=== PATIENT | female | born 1985 | race Caucasian/White ===

== ENCOUNTER 2024-12-27 21:16 | Emergency (ER) | payer BC ==
--- NOTE | 2024-12-27 22:09 | RAD REPORT ---
EXAMINATION: ONE VIEW CHEST XR CLINICAL INDICATION: CHEST PAIN TECHNIQUE: Frontal chest projection is submitted. Examination is limited by patient positioning and t echnique. COMPARISON: No prior exam. FINDINGS: The lungs are well inflated and clear. The heart is upper limit of normal in size. No displaced fract ures identified. IMPRESSION: No acute intrathoracic abnormalities.
[2024-12-27 23:40] LABS: Absolute Basophils 0.1 K/uL (0-0.5); Absolute Eosinophils 0.6 K/uL (0-0.5); Absolute Lymphocytes (CBC) 2.6 K/uL (0.7-4.9); Absolute Monocytes 0.9 K/uL (0.1-1.3); Absolute Neutrophil 6.9 K/uL (1.8-8.0); Basophils % 0.8 % (0-1.3); Eosinophils % 5.1 % (0-4.4); Hematocrit 36.6 % (36.0-45.0); Hemoglobin 12.1 g/dL (12.0-15.0); Lymphocytes % 23.2 % (15.3-44.8); MCH 28.4 pg (27.0-35.0); MCHC 33.1 g/dL (32.0-36.0); MCV 85.7 fL (80-100); MPV 8.4 fL (7.6-11.3); Monocytes % 8.4 % (3.3-12.3); Neutrophils % 62.5 % (41.7-73.7); Nucleated Red Blood Cells % 0.1 % (0-0); Platelets 407 thou/uL (152-406); RBC Red Blood Cell Count 4.27 M/uL (3.86-4.86); Red Cell Distribution Width 13.8 % (12.1-15.2)
[2024-12-27 23:48] LABS: PT Prothrombin Time 11.6 SECONDS (9.4-12.5); Protime INR 1.11
[2024-12-28 00:16] LABS: ALT/SGPT 25 U/L (13-56); AST/SGOT 14 U/L (15-37); Albumin 3.5 g/dL (3.4-5.0); Albumin/Globulin Ratio 0.8 (1.1-1.8); Alkaline Phosphatase 72 U/L (45-117); Anion Gap 7.5 mEq/L (5.0-15.0); BUN Blood Urea Nitrogen 16 mg/dL (7-18); Bicarbonate 29 mEq/L (21-32); Bilirubin Total 0.2 mg/dL (0.2-1.0); Globulin 4.3 g/dL (2.3-3.5); Glomerular Filtration Rate 95 ml/min (=/>90); Glucose Level 95 mg/dL (74-106); Magnesium 2.3 mg/dL (1.6-2.4); NT PRO-BNP 19 pg/mL (<125); Potassium 3.5 mEq/L (3.5-5.1); Protein, Total 7.8 g/dL (6.4-8.2); Sodium Level 138 mEq/L (136-145)
[2024-12-28 00:26] LABS: Bilirubin Direct < 0.2 mg/dL (0-0.2); Troponin High Sensitivity < 3.0 pg/mL (<58.9)
[2024-12-28 00:27] LABS: Barbiturates NEGATIVE (NEGATIVE); Benzodiazepines NEGATIVE (NEGATIVE); Cocaine NEGATIVE (NEGATIVE); METHAMPHETAM NEGATIVE (NEGATIVE); Methadone NEGATIVE (NEGATIVE); Opiates NEGATIVE (NEGATIVE); Phencyclidine NEGATIVE (NEGATIVE); THC Cannibis NEGATIVE (NEGATIVE)
--- NOTE | 2024-12-28 00:37 | ER ---
Nurse's Notes [facility] Name: Aurora Argueta Age: 39 yrs Sex: Female : 1985 Arrival Date: 12/27/2024 Time: 21:16 Bed 18 Private MD: Diagnosis: Elevated blood-pressure reading, without diagnosis of hypertension;Elevated blood pressure, Acute Stress Reaction Presentation: 12/27 21:30 Chief complaint: Patient states: Tingling and tightness in left arm. Coronavirus ay screen: Client denies travel out of the [place] in the last 14 days. Ebola Screen: No symptoms or risks identified at this time. Initial Sepsis Screen: Does the patient meet any 2 criteria? No. Patient's initial sepsis screen is negative. Does the patient have a suspected source of infection? No. Patient's initial sepsis screen is negative. Risk Assessment: Do you want to hurt yourself or someone else? Patient reports no desire to harm self or others. Note Pt came in with a c/o left arm tightness and tingling. Denies CP, SOB, N/V. Alert and oriented, no distress noted. Onset of symptoms is unknown. 21:30 Method Of Arrival: Ambulatory ay 21:30 Acuity: VANESSA 3 ay Triage Assessment: 21:30 General: Appears in no apparent distress. comfortable, Behavior is calm, cooperative. ay Pain: Denies pain. Historical: - Allergies: 22:51 NKDA; ay - Immunization history:: Client reports having NOT received the Covid vaccine. Flu vaccine is not up to date. - Infectious Disease History:: Denies. - Family history:: not pertinent. - Social history:: Smoking status: Patient denies any tobacco usage or history of. Screenin:51 [facility] ED Fall Risk Assessment (Adult) History of falling in the last 3 months, ay including since admission No falls in past 3 months (0 pts) Confusion or Disorientation No (0 pts) Intoxicated or Sedated No (0 pts) Impaired Gait No (0 pts) Mobility Assist Device Used No (0 pt) Altered Elimination No (0 pt) Score/Fall Risk Level 0 - 2 = Low Risk Oriented to surroundings, Maintained a safe environment, Educated pt \\T\\ family on fall prevention, incl call for assistance when getting out of bed. Abuse screen: Denies threats or abuse. Nutritional screening: No deficits noted. Tuberculosis screening: No symptoms or risk factors identified. Assessment: 21:30 General: Appears in no apparent distress. comfortable, Behavior is calm, cooperative. ay General: Pt came in with a c/o left arm tightness and tingling that started "for sometime now", denies CP, SOB, N/V. Pt alert and oriented x4 . No distress noted. Pt on cardiac and vitals monitors. Pain: Denies pain. Denies CP, c/o left arm tightness and tingling. Pain: Pain began denies pain. Neuro: Level of Consciousness is awake, alert, obeys commands, Oriented to person, place, time, situation, Speech is normal. Cardiovascular: Denies chest pain, nausea, vomiting, Capillary refill < 3 seconds Patient's skin is warm and dry. Respiratory: Airway is patent Respiratory effort is even, unlabored. GI: No signs and/or symptoms were reported involving the gastrointestinal system. : No signs and/or symptoms were reported regarding the genitourinary system. EENT: No signs and/or symptoms were reported regarding the EENT system. Vital Signs: 21:30 BP 139 / 105; Pulse 105; Resp 20; Pulse Ox 97% ; ay 22:00 BP 132 / 91; Pulse 87; Resp 19; Pulse Ox 98% ; ay 22:30 BP 125 / 88; Pulse 76; Resp 17; Pulse Ox 99% ; ay 23:00 BP 131 / 80; Pulse 78; Resp 18; Pulse Ox 100% ; ay 12/28 00:00 BP 127 / 91; Pulse 76; Resp 16; Pulse Ox 97% ; ay [place] Coma Score: 12/27 21:34 Eye Response: spontaneous(4). Motor Response: obeys commands(6). Verbal Response: sp4 oriented(5). Total: 15. 22:51 Eye Response: spontaneous(4). Motor Response: obeys commands(6). Verbal Response: ay oriented(5). Total: 15. NIH Stroke Scale Scores: 21:34 NIHSS Score: 0 sp4 ED Course: 21:19 Patient arrived in ED. im 21:23 Aron King MD is Attending Physician. sp4 21:30 Arm band placed on right wrist. EKG completed in triage. Results shown to MD. EKG ay completed in triage. Results shown to MD. EKG completed in triage. Results shown to MD. EKG completed in triage. Results shown to MD. EKG completed in triage. Results shown to MD. EKG completed in triage. Results shown to MD. EKG done per protocol. Performed by ED Staff. 22:00 Inserted saline lock: 22 gauge in right upper arm, using aseptic technique. ay 22:03 XRAY Chest (1 view) In Process Unspecified. EDMS 22:40 Cary Moise, RN is Primary Nurse. ay 22:51 Patient has correct armband on for positive identification. Bed in low position. Call ay light in reach. Side rails up X2. property assessment monitor on. Pulse ox on. NIBP on. 22:51 Patient maintains SpO2 saturation greater than 95% on room air. ay 12/28 00:35 Samir Freeman DO is Referral Physician. sp4 01:11 Triage completed. ay : IV discontinued, intact, bleeding controlled, No redness/swelling at site. Pressure ay dressing applied. Administered Medications: No medications were administered Outcome: 00:37 Discharge ordered by spReno 01:23 Discharged to home ambulatory, ay :23 Condition: stable :23 Discharge instructions given to patient, Instructed on discharge instructions, follow up and referral plans. Demonstrated understanding of instructions, follow-up care, 01:25 Patient left the ED. ay NIH Stroke Scale - NIH Stroke Score Date: 12/27/2024 Time: 21:34 Total Score = 0 10. Dysarthria (speech clarity - read or repeat words) - 0(Normal) 11. Extinction and Inattention (visual/tactile/auditory/spatial/personal) - 0(No abnormality) 1a. Level of Consciousness (LOC) - 0(Alert) 1b. Level of Consciousness (LOC) (Month \\T\\ Age) - 0(Both) 1c. LOC Commands (Open \\T\\ Closes Eyes/Cnc Service Technician) - 0(Both) 2. Best Gaze (Lateral Gaze Paresis) - 0(Normal) 3. Visual Field Loss - 0(No visual loss) 4. Facial Palsy - 0(Normal) 5a. Left Arm: Motor (10-second hold) - 0(No drift) 5b. Right Arm: Motor (10-second hold) - 0(No drift) 6a. Left Leg: Motor (5-second hold - always test supine) - 0(No drift) 6b. Right Leg: Motor (5-second hold - always test supine) - 0(No drift) 7. Limb Ataxia (finger/nose \\T\\ heel/randle - test with eyes open) - 0(Absent) 8. Sensory Loss (pinprick arms/legs/face) - 0(Normal) 9. Best Language: Aphasia (description/naming/reading) - 0(No aphasia) Initials: sp4 Signatures: Dispatcher [employer] Aron Ann MD MD sp4 Fabiana Otero Awudu, RN RN ay
--- NOTE | 2024-12-28 00:37 | EDPHYS ---
Physician Documentation [facility] Name: Aurora Argueta Age: 39 yrs Sex: Female : 1985 Arrival Date: 12/27/2024 Time: 21:16 Bed 18 Private MD: ED Physician Aron King HPI: 12/27 21:23 This 39 yrs old Female presents to ER via Unassigned with complaints of High sp4 Blood Pressure, Chest Pain, Arm Problem - tightness left. 12/28 02:55 Patient presents with report of elevated blood pressure associated with left arm sp4 tingling and numbness. Patient reports increased levels of stress. She reports blood pressures 160/110 . Historical: - Allergies: 12/27 22:51 NKDA; ay - Immunization history:: Client reports having NOT received the Covid vaccine. Flu vaccine is not up to date. - Infectious Disease History:: Denies. - Family history:: not pertinent. - Social history:: Smoking status: Patient denies any tobacco usage or history of. ROS: 12/28 02:55 Constitutional: Negative for fever, chills, and weight loss, positive elevated blood sp4 pressure positive arm numbness and tingling on the left. All other systems are negative, Exam: 02:55 Constitutional: This is a well developed, well nourished patient who is awake, alert, sp4 and in no acute distress. Head/Face: Normocephalic, atraumatic. Eyes: Pupils equal round and reactive to light, extra-ocular motions intact. Lids and lashes normal. Conjunctiva and sclera are not injected. Cornea within normal limits. Periorbital areas with no swelling, redness, or edema. ENT: Nares patent. No nasal discharge, no septal abnormalities noted. Tympanic membranes are normal and external auditory canals are clear. Oropharynx with no redness, swelling, or masses, exudates, or evidence of obstruction, uvula midline. Mucous membranes moist. Neck: Trachea midline, no thyromegaly or masses palpated, and no cervical lymphadenopathy. Supple, full range of motion without nuchal rigidity, or vertebral point tenderness. Chest/axilla: Normal chest wall appearance and motion. Nontender with no deformity. No lesions are appreciated. Cardiovascular: Regular rate and rhythm with a normal S1 and S2. No gallops, murmurs, or rubs. Normal PMI, no JVD. No pulse deficits. Respiratory: Lungs have equal breath sounds bilaterally, clear to auscultation and percussion. No rales, rhonchi or wheezes noted. No increased work of breathing, no retractions or nasal flaring. Abdomen/GI: Soft, with normal bowel sounds. No distension or tympany. No guarding or rebound. No evidence of tenderness throughout. Back: No spinal tenderness. No costovertebral tenderness. Skin: Warm, dry with normal turgor. Normal color with no rashes, no lesions, and no evidence of cellulitis. MS/ Extremity: Pulses equal, no cyanosis. Neurovascular intact. Full, normal range of motion. Neuro: Awake and alert, GCS 15, oriented to person, place, time, and situation. Cranial nerves II-XII grossly intact. Motor strength 5/5 in all extremities. Sensory grossly intact. Psych: Awake, alert, with orientation to person, place and time. Behavior, mood, and affect are within normal limits 02:55 ECG was reviewed by the Attending Physician. EKG 2134 sinus tachycardia rate 105 otherwise normal. Vital Signs: 12/27 21:30 BP 139 / 105; Pulse 105; Resp 20; Pulse Ox 97% ; ay 22:00 BP 132 / 91; Pulse 87; Resp 19; Pulse Ox 98% ; ay 22:30 BP 125 / 88; Pulse 76; Resp 17; Pulse Ox 99% ; ay 23:00 BP 131 / 80; Pulse 78; Resp 18; Pulse Ox 100% ; ay 12/28 00:00 BP 127 / 91; Pulse 76; Resp 16; Pulse Ox 97% ; ay NIH Stroke Scale Scores: 02 21:34 NIHSS Score: 0 sp4 [place] Coma Score: 21:34 Eye Response: spontaneous(4). Motor Response: obeys commands(6). Verbal Response: sp4 oriented(5). Total: 15. 22:51 Eye Response: spontaneous(4). Motor Response: obeys commands(6). Verbal Response: ay oriented(5). Total: 15. MDM: 21:25 Medical Screening Exam initiated sp4 21:34 Differential diagnosis: hypertensive crisis, Malignant HTN. Data reviewed: vital signs, sp4 nurses notes. 21:34 Consideration of Admission/Observation Escalation of care including sp4 admission/observation considered. ED course: EKG 2134 is normal, workup is unremarkable. Blood pressure improved while patient was relaxing in ER. Patient stable for discharge home will refer to [facility] for blood pressure monitoring. Will recommend keeping blood pressure diary. 12/27 21:23 Order name: Basic Metabolic Panel; Complete Time: 00:28 sp4 12/27 21:23 Order name: CBC with Diff; Complete Time: 00: sp4 12/27 21:23 Order name: LFT's; Complete Time: 00: sp4 12/27 21:23 Order name: Magnesium; Complete Time: 00: sp4 12/27 21:23 Order name: NT PRO-BNP; Complete Time: 00: 4 12/27 21:23 Order name: PT-INR; Complete Time: 00:4 12/27 21:23 Order name: Troponin HS; Complete Time: 00: 4 12/27 21:24 Order name: Test, Urine; Complete Time: 00:4 12/27 21:24 Order name: Urine Drug Screen; Complete Time: 00: sp4 12/27 21:23 Order name: XRAY Chest (1 view); Complete Time: 22:11 4 12/27 21:23 Order name: EKG; Complete Time: 21:24 4 12/27 21:23 Order name: Cardiac monitoring; Complete Time: :45 4 12/27 21:23 Order name: EKG - Nurse/Tech; Complete Time: 21:45 4 12/27 21:23 Order name: IV Saline Lock; Complete Time: 23:04 4 12/27 21:23 Order name: Labs collected and sent; Complete Time: 23:04 sp4 12/27 21:23 Order name: O2 Per Protocol; Complete Time: :45 sp4 12/27 21:23 Order name: O2 Sat Monitoring; Complete Time: :45 sp4 EC:34 Rate is 105 beats/min. Rhythm is regular, Sinus tachycardia. QRS [place] is Normal. [place] sp4 interval is normal. QRS interval is normal. QT interval is normal. No Q waves. T waves are Normal. No ST changes noted. Clinical impression: No evidence of ischemia. Interpreted by me. Reviewed by me. Administered Medications: No medications were administered Disposition Summary: 12/28/24 00:37 Discharge Ordered Problem: new sp4 Symptoms: have improved sp4 Condition: Stable sp4 Diagnosis - Elevated blood-pressure reading, without diagnosis of hypertension sp4 - Elevated blood pressure, Acute Stress Reaction sp4 Followup: sp4 - With: Samir Freeman DO - When: 7 - 10 days - Reason: Recheck today's complaints Discharge Instructions: - Discharge Summary Sheet sp4 - How to Take Your Blood Pressure, [id number] sp4 Forms: - Patient Portal Instructions sp4 NIH Stroke Scale - NIH Stroke Score Date: 12/27/2024 Time: 21:34 Total Score = 0 10. Dysarthria (speech clarity - read or repeat words) - 0(Normal) 11. Extinction and Inattention (visual/tactile/auditory/spatial/personal) - 0(No abnormality) 1a. Level of Consciousness (LOC) - 0(Alert) 1b. Level of Consciousness (LOC) (Month \T\ Age) - 0(Both) 1c. LOC Commands (Open \T\ Closes Eyes/Installation Manager) - 0(Both) 2. Best Gaze (Lateral Gaze Paresis) - 0(Normal) 3. Visual Field Loss - 0(No visual loss) 4. Facial Palsy - 0(Normal) 5a. Left Arm: Motor (10-second hold) - 0(No drift) 5b. Right Arm: Motor (10-second hold) - 0(No drift) 6a. Left Leg: Motor (5-second hold - always test supine) - 0(No drift) 6b. Right Leg: Motor (5-second hold - always test supine) - 0(No drift) 7. Limb Ataxia (finger/nose \T\ heel/randle - test with eyes open) - 0(Absent) 8. Sensory Loss (pinprick arms/legs/face) - 0(Normal) 9. Best Language: Aphasia (description/naming/reading) - 0(No aphasia) Initials: sp4 Signatures: Dispatcher [employer] Aron Ann MD MD sp4 Cary Moise RN RN ay Corrections: (The following items were deleted from the chart) 21:24 21:24 Test, Urine+UC.LAB.BRZ ordered. EDMS EDMS 21:24 21:24 URINE DRUG SCREEN+UC.LAB.BRZ ordered. EDMS EDMS
[2024-12-28 01:54] VITALS: BP 127/91; O2SAT 97
== END 2024-12-28 01:25 | disposition home or self-care (01) ==
LOC: ER 21:16
DX: F43.0 Acute stress reaction (principal)
CPT/HCPCS: 36415; 71045; 80048; 80076; 80307; 81025; 83735; 83880; 84484; 85025; 85610; 93005; 99285